=== PATIENT | female | born 1930 | race Caucasian/White ===

== ENCOUNTER 2016-08-15 16:55 | Inpatient (IN) | payer MEDICARE ==
[2016-08-15 18:21] LABS: SPECIFIC GRAVITY 1.015 (1.001-1.030); URINE BILIRUBIN NEGATIVE (NEGATIVE); URINE BLOOD TRACE (NEGATIVE); URINE GLUCOSE (UA) NEGATIVE (NEGATIVE); URINE LEUKOCYTE ESTERASE NEGATIVE (NEGATIVE); URINE NITRITE POSITIVE (NEGATIVE); URINE PROTEIN NEGATIVE (NEGATIVE); URINE UROBILINOGEN NORMAL (0-1 mg/dl)
[2016-08-15 18:24] LABS: URINE APPEARANCE HAZY; URINE COLOR LIGHT YELLOW
[2016-08-15 18:34] LABS: URINE BACTERIA 4+; URINE EPITHELIAL CELLS 0 /hpf; URINE RBC 0 /hpf
[2016-08-15] MEDS ORDERED: SODIUM CHLORIDE 0.9% 1,000 ML ONE (18:52)
[2016-08-15 18:58] LABS: ABSOLUTE NEUTROPHIL COUNT 11.1 K/mm3 (1.8-7.7); BASO # 0.1 K/mm3 (0.0-0.2); BASO % 0.5 % (0.2-1.0); EOS # 0.2 (0.0-0.5); EOS % 1.2 % (0.9-2.9); HEMATOCRIT 38.7 % (37.0-47.0); HEMOGLOBIN 12.4 gm/l (12.0-16.0); IMM NEUT% 0.3 % (0-1); LYMPH # 1.7 (1.0-4.8); LYMPH % 12.1 % (15-45); MEAN CELL VOLUME 90.8 fl (81.0-99.0); MEAN CORPUSCULAR HEMOGLOBIN 29.1 pg (27.0-31.0); MEAN PLATELET VOLUME 9.6 fl (7.4-10.4); MONO # 0.8 (0.0-0.8); NEUT % 79.9 % (43-75); PLATELET COUNT 422 K/mm3 (130-400); RED CELL DISTRIBUTION WIDTH 16.5 % (11.5-14.5)
[2016-08-15 19:20] LABS: ALB/GLOB RATIO 0.8 (>1.0); ALBUMIN 3.4 gm/dL (3.5-5.7); CALCIUM 8.8 mg/dL (8.6-10.3)
[2016-08-15 19:36] LABS: INR 2.29; PROTHROMBIN TIME 25.1 SECONDS (9.3-11.4)
[2016-08-15] MEDS ORDERED: CEFTRIAXONE 1 GRAM DUPLEX 50 ML IV ONE (19:43)
[2016-08-15] MEDS ORDERED: MENTHOL/CETYLPYRD 1 EACH LOZENGE PO PRN (23:16)
[2016-08-15] MEDS ORDERED: MAGNESIUM HYDROXIDE 30 ML UDCUP PO PRN (23:16)
[2016-08-15] MEDS ORDERED: ACETAMINOPHEN 325 MG TABLET PO PRN (23:16)
[2016-08-15] MEDS ORDERED: SODIUM CHLORIDE 0.9% 100 ML IV PRN (23:16)
[2016-08-15] MEDS ORDERED: BLISTEX LIPSTICK 1 EACH TP PRN (23:16)
[2016-08-15] MEDS ORDERED: ALBUTEROL NEB 2.5 MG/3 ML VIAL.NEB NEB PRN (23:19)
[2016-08-15] MEDS ORDERED: INSULIN ASPART (DOSE) 100 UNITS/1 ML SUB-Q PRN (23:23)
[2016-08-16] MEDS: GUAIFENESIN 600 MG TABLET.DR PO SCH ×4 (00:07→21:32)
[2016-08-16 05:33] VITALS: BMI 37.6
[2016-08-16 06:55] LABS: BASO % 0.5 % (0.2-1.0); EOS # 0.2 (0.0-0.5); EOS % 2.6 % (0.9-2.9); HEMATOCRIT 36.5 % (37.0-47.0); HEMOGLOBIN 11.8 gm/l (12.0-16.0); IMM NEUT% 0.5 % (0-1); LYMPH # 1.6 (1.0-4.8); LYMPH % 18.5 % (15-45); MEAN CELL VOLUME 89.2 fl (81.0-99.0); MEAN CORPUSCULAR HEMOGLOBIN 28.9 pg (27.0-31.0); MEAN CORPUSCULAR HGB CONC 32.3 g/dl (33.0-37.0); MEAN PLATELET VOLUME 9.9 fl (7.4-10.4); MONO # 0.6 (0.0-0.8); MONO % 7.1 % (4-12); NEUT % 70.8 % (43-75); PLATELET COUNT 385 K/mm3 (130-400); RED CELL DISTRIBUTION WIDTH 16.2 % (11.5-14.5)
[2016-08-16 07:01] LABS: INR 1.75; PROTHROMBIN TIME 18.9 SECONDS (9.3-11.4)
[2016-08-16 07:12] LABS: CALCIUM 8.1 mg/dL (8.6-10.3)
--- NOTE | 2016-08-16 07:30 | RAD ---
KNEE- LEFT 4 OR MORE VIEWS HISTORY: Knee pain. COMPARISONS: None. FINDINGS: 4 views of the left knee were performed demonstrating grossly intact osseous structures. There are prominent osteoarthritic changes seen with medial cartilage joint space loss and associated osteophyte formation. No lytic or blastic lesions are seen. No evidence of a significant knee joint effusion is observed. Atherosclerotic vascular calcification is noted posteriorly. IMPRESSION: 1. Prominent osteoarthritic changes with patellofemoral and medial compartment joint space loss. 2. No definitive fracture or significant joint effusion identified.
--- NOTE | 2016-08-16 07:34 | CT ---
LOWER EXT W/O CON LT History: Left knee pain. Comparison: Plain film examination of the same day. Procedure: 1 mm axial images were obtained through the left knee without the use of oral or intravenous contrast. Stacked reconstructed 3 mm images were then photographed in the axial, coronal and sagittal planes.. Findings: Images demonstrate no definitive fracture. There are prominent osteoarthritic changes seen with extensive tricompartmental osteophyte formation and patellofemoral and medial compartment joint space loss. There is a minimal joint effusion identified. A 12 mm irregular ossific density within the anterior aspect of the knee joint space likely reflects a loose body. Impression: 1. No acute fracture visualized. 2. Prominent tricompartmental osteoarthritic changes with patellofemoral and medial compartment joint space loss with associated osteophyte formation. 3. A probable 12 mm intra-articular loose body within the anterior aspect of the knee joint space. 4. A minimal joint effusion. The findings were called to the emergency room at 2021 hours, 08/15/2016, by [facility].
[2016-08-16] MEDS: DOCUSATE SODIUM 100 MG CAPSULE PO SCH ×3 (07:39→21:31)
[2016-08-16] MEDS: DILTIAZEM HCL CD 180 MG CAPSULE PO SCH ×2 (07:39→08:55)
[2016-08-16] MEDS: FLUTICASONE PROPIONATE 50 MCG/SPRAY 120 SPRAYS/16 G INH NS SCH ×2 (07:40→08:56)
[2016-08-16] MEDS: TOLTERODINE TARTRATE 2 MG TABLET PO SCH ×3 (07:40→21:30)
[2016-08-16] MEDS: METFORMIN HCL 1,000 MG TABLET PO SCH ×3 (07:40→21:32)
[2016-08-16] MEDS: FUROSEMIDE 40 MG TABLET PO SCH ×2 (07:41→08:57)
[2016-08-16] MEDS: ATORVASTATIN CALCIUM 40 MG TABLET PO SCH ×2 (07:41→08:57)
[2016-08-16] MEDS: VITAMIN D3 1,000 UNITS CAP.LIQ PO SCH ×2 (07:43→08:58)
[2016-08-16] MEDS: Potassium Chloride ORAL SOLN 20 MEQ/15 ML UDCUP PO SCH ×5 (08:57→21:30)
[2016-08-16] MEDS ORDERED: DILTIAZEM HCL CD 180 MG CAPSULE PO SCH (09:00)
--- NOTE | 2016-08-16 11:27 | HP ---
BALJIT PÉREZ [id number] DATE OF : 1930 DATE OF ADMISSION: 08/15/2016 IDENTIFICATION: Ms. Pérez is an 86-year-old now followed by Dr. Davis. CHIEF COMPLAINT: Multiple falls. HISTORY OF PRESENT ILLNESS: Ms. Pérez reports that she has fallen several times at home. She has weakness, and has had acute on chronic injury of her left knee causing a great deal of pain. She is also reporting a cough, and urinary frequency. Paramedics have been summoned to the house multiple times a day to help her up after falls. Ultimately, they brought her to [facility] Emergency Room where she was found to have the urinary tract infection and was too weak to be discharged. She was treated to ceftriaxone and referred to the Hospitalist service. REVIEW OF SYSTEMS: HEENT: She denies headache, or lightheadedness. No specific problems with eyes, ears, nose, and throat. Respiratory: She does have cough and dyspnea, nonproductive. Cardiac: No chest pain, or palpitations. Gastrointestinal: No nausea, vomiting or dyspepsia. She does have intermittent constipation. No hematochezia, or melena. Genitourinary: Frequency, no dysuria. Musculoskeletal: Generalized weakness. Constitutional: She has felt chills. PAST MEDICAL HISTORY: 1. Benign essential hypertension. 2. Hyperlipidemia. 3. Hearing loss. 4. Osteoarthritis. 5. Vitamin D deficiency. 6. Eczema. 7. Chronic lower extremity edema. 8. Diabetes mellitus type 2. 9. Urgency incontinence. 10. Chronic atrial fibrillation, anticoagulated on Warfarin. 11. 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 PAST SURGICAL HISTORY: 1. Laparoscopic cholecystectomy in 1990. 2. She describes recent procedure which sounds like esophagogastroduodenoscopy, maybe with endoscopic retrograde cholangiopancreatography. 3. Right cataract surgery. ALLERGIES: NONE KNOWN. MEDICATIONS: Taken from clinic records. 1. Vitamin D3 at 2000 international units daily. 2. Glimepiride 4 mg by mouth daily. 3. Metformin 1000 mg by mouth twice a day. 4. Furosemide 40 mg by mouth daily. 5. Fluticasone nasal spray daily. 6. Detrol 2 mg by mouth twice a day. 7. Atorvastatin 40 mg by mouth daily. 8. Diltiazem ER 180 mg daily. 9. Warfarin 5 mg by mouth daily. Note from the [facility] on 08/11/2016, she was taking Warfarin 5 mg daily and her INR was 2.8. HABITS: No current, or past tobacco, alcohol or drugs. SOCIAL HISTORY: She lives with her son and [id number]. She has a POLST form which does not have section A marked, but says comfort measures only in section B. She does want antibiotic treatment, but does not want cardiopulmonary resuscitation. A new POLST is completed with DNAR but Limited Additional Interventions. FAMILY HISTORY: Father of coronary artery disease at age 68. She had a brother with cancer of unknown type. PHYSICAL EXAMINATION: GENERAL: This is an obese very elderly woman with frequent moist cough. VITAL SIGNS: Temperature is 97.8 degrees Fahrenheit. Pulse is 78. Blood pressure is 137/51. Respiratory rate is 18. Oxygen saturation is 97% on room air. HEENT: Pupils are equal, round, and reactive. Extraocular muscles intact. Right status post cataract surgery. Oropharynx is moist. Dentition in moderate to poor condition. NECK: No adenopathy. CHEST: Lungs are clear. She does have some upper airway congestion that clears with coughing. HEART: Regular with 2/6 systolic murmur. ABDOMEN: Obese, soft and nontender. No suprapubic tenderness. No costovertebral angle tenderness. Normal bowel tones. No organomegaly. EXTREMITIES: Decreased with palpable pulses. Trace edema. No cyanosis, or clubbing. NEUROLOGIC: Very subtle decreased strength in the left arm and leg, otherwise nonfocal. LABORATORY DATA: White blood cell count is 13.9 with 80% neutrophils, hemoglobin and hematocrit 12.4 and 38.7, and platelets 422. INR is in the therapeutic range at 2.29. Sodium is 139, potassium 3.5, chloride 98, C02 of 31, BUN 19, creatinine 0.8, and glucose 163. Alkaline phosphatase is 143. Albumin is low at 3.4. Urinalysis: Specific gravity of 1.015, positive nitrate, negative leukocyte esterase, microscopic shows 3 to 5 white blood cell count, and 4+ bacteria. Culture has been set up. ASSESSMENT: Ms. Pérez is an 86-year-old who presents with urinary tract infection, and generalized weakness. She has had falls at home with exacerbation of her chronic osteoarthritis pain of the left knee. She has mild hypokalemia, underlying diabetes, cerebrovascular disease, chronic atrial fibrillation, and hypertension. PLAN: 1. Admit to med surge. 2. Continue treatment for urinary tract infection with ceftriaxone as started in the emergency department. 3. Continue outpatient medications. 4. Mucinex as needed for coughing and congestion. 5. She is fully anticoagulated on Warfarin and does not require additional venous thromboembolism prophylaxis. 6. DO NOT RESUSCITATE status. 7. Physical and occupational therapy evaluation and treatment. 8. She may need snf rehabilitation. KIMBERLY/talita
--- NOTE | 2016-08-16 12:15 | PDOC43 ---
- Subjective Chief Complaint: Multiple falls at home and weakness Feeling a little stronger today but still weak and fatigued. Denies dyspnea. - Objective Vital Signs Temperature 97.8 F 08/16/16 07:50 Pulse Rate 65 08/16/16 07:50 Respiratory Rate 18 08/16/16 11:00 Blood Pressure 119/68 08/16/16 07:50 O2 Saturation by Pulse Oximetry 95 08/16/16 07:50 Oxygen Delivery Method Room Air Oxygen Flow Rate 0 Intake and Output 08/15/16 08/16/16 08/17/16 06:59 06:59 06:59 Output Total 200 Balance -200 General: Alert, Oriented x3, Cooperative, No Acute Distress HEENT: Mucous membr. moist/pink Cardiovascular: Regular Rate and Rhythm, Murmur (09/21) Abdomen: Soft, Normal Bowel Sounds, No Tenderness, No Masses Extremities: Edema (trace), Pulses Diminished but Palpable Skin: Normal Color Neurological: Normal Speech Psych/Mental Status: Depressed Laboratory 08/16/16 05:20 08/16/16 05:30 08/16/16 08/16/16 08/16/16 11:36 05:30 05:20 RBC 4.09 L MCHC 32.3 L RDW 16.2 H PT 18.9 H Estimated GFR 94 H POC Capillary Glucose 115 H Calcium 8.1 L Current Medications: Current meds reviewed in EMR. - Problems: Assessment/Plan (1) UTI (lower urinary tract infection) Status: Acute Assessment/Plan: Bacterial infection present on admit, continue Ceftriaxone while awaiting culture results. (2) Hypokalemia Status: Acute Assessment/Plan: Increase replacement. (3) Weakness Status: Acute Assessment/Plan: OT/PT eval done, does need mod assist for pivot transfer, not clear if this is her baseline or not, home with [facility] vs. SNF for rehab. (4) Atrial fibrillation Qualifiers: Atrial fibrillation type: chronic Qualifier Code: (I48.2) Chronic atrial fibrillation Status: Chronic Assessment/Plan: Rate controlled, INR sub-therapeutic today, continue warfarin 5 mg daily and adjust as indicated. (5) CVD (cerebrovascular disease) Status: Chronic Assessment/Plan: With residual non-dominant left hemiparesis. Stable. (6) Diabetes type 2, controlled Qualifiers: Diabetes mellitus complication status: without complication Diabetes mellitus joint terminal attack controller insulin use: with joint terminal attack controller use Qualifier Code: (E11.9) Type 2 diabetes mellitus without complications Status: Chronic Assessment/Plan: BG well controlled (7) Dyslipidemia Status: Chronic Assessment/Plan: on atorvastatin (8) HTN (hypertension), benign Status: Chronic Assessment/Plan: well controlled (9) Osteoarthritis Qualifiers: Osteoarthritis location: multiple joints Osteoarthritis type: primary Qualifier Code: (M15.0) Primary generalized (osteo)arthritis Status: Chronic Assessment/Plan: with exacerbation of left knee pain from falls, APAP prn. (10) Anemia Status: Acute Assessment/Plan: dilutional from IVF hydration. VTE Prophylaxis: Warfarin Disposition: Home with HHC vs. SNF rehab
[2016-08-16] MEDS: WARFARIN SODIUM 5 MG TABLET PO SCH (15:00)
[2016-08-16] MEDS ORDERED: CEFTRIAXONE 1 GRAM DUPLEX 50 ML IV ONE (16:37)
[2016-08-16] MEDS ORDERED: SODIUM CHLORIDE 0.9% 50 ML IV ONE (16:44)
[2016-08-16] MEDS ORDERED: PUMP TUBING ONE (16:44)
[2016-08-16] MEDS: CEFTRIAXONE 1 GRAM DUPLEX 1 G in Premix (D5W) 50 ml 1 EACH IV SCH (17:00)
[2016-08-16] MEDS ORDERED: GLIMEPIRIDE 2 MG TABLET PO SCH (20:00)
[2016-08-17] MEDS ORDERED: SODIUM CHLORIDE 0.9% FLUSH 10 ML ONE (03:09)
[2016-08-17] MEDS ORDERED: IV START KIT ONE (03:09)
[2016-08-17 06:37] LABS: INR 1.53; PROTHROMBIN TIME 16.5 SECONDS (9.3-11.4)
[2016-08-17 06:48] LABS: CALCIUM 8.3 mg/dL (8.6-10.3)
[2016-08-17] MEDS: ATORVASTATIN CALCIUM 40 MG TABLET PO SCH (09:06)
[2016-08-17] MEDS: VITAMIN D3 1,000 UNITS CAP.LIQ PO SCH (09:06)
[2016-08-17] MEDS: TOLTERODINE TARTRATE 2 MG TABLET PO SCH ×2 (09:06→22:20)
[2016-08-17] MEDS: GUAIFENESIN 600 MG TABLET.DR PO SCH ×2 (09:07→22:20)
[2016-08-17] MEDS: METFORMIN HCL 1,000 MG TABLET PO SCH ×2 (09:07→17:02)
[2016-08-17] MEDS: DOCUSATE SODIUM 100 MG CAPSULE PO SCH ×2 (09:07→22:21)
[2016-08-17] MEDS: FUROSEMIDE 40 MG TABLET PO SCH (09:07)
[2016-08-17] MEDS: DILTIAZEM HCL CD 180 MG CAPSULE PO SCH (09:07)
[2016-08-17] MEDS: FLUTICASONE PROPIONATE 50 MCG/SPRAY 120 SPRAYS/16 G INH NS SCH (09:08)
--- NOTE | 2016-08-17 11:41 | PDOC43 ---
- Subjective Chief Complaint: Multiple falls at home and weakness A bit stronger today but still feels very weak. Subjective: Reports Pain Tolerable, Reports Tolerating Diet Well, Denies Shortness of Breath, Denies Cough, Denies Chest Pain, Denies Nausea, Denies Vomiting, Denies Fever, Denies Chills - Objective Vital Signs Temperature 98.3 F 08/17/16 07:32 Pulse Rate 67 08/17/16 07:32 Respiratory Rate 15 08/17/16 08:45 Blood Pressure 116/56 08/17/16 07:32 O2 Saturation by Pulse Oximetry 95 08/17/16 07:32 Oxygen Delivery Method Room Air Oxygen Flow Rate 0 Intake and Output 08/16/16 08/17/16 08/18/16 06:59 06:59 06:59 Intake Total 1480 Output Total 551 Balance 929 General: Alert, Oriented x3, Other (Tired/weak appearing.), No Acute Distress Lungs: Clear to Auscultation Bilaterally Cardiovascular: Regular Rate and Rhythm Abdomen: Soft, Normal Bowel Sounds, No Tenderness, No Rebounding, No Distention Extremities: Edema (Trace), Pulses Diminished but Palpable Neurological: Normal Speech Psych/Mental Status: Depressed Laboratory 08/17/16 05:30 Current Medications: Current meds reviewed in EMR. - Problems: Assessment/Plan (1) UTI (lower urinary tract infection) Status: Acute Assessment/Plan: Present on admit, cultures growing Klebsiella sp. Continue Ceftriaxone. (2) Hypokalemia Status: Acute Assessment/Plan: POA. Replaced. Follow. (3) Weakness Status: Acute Assessment/Plan: Pt with marked weakness d/t acute UTI in context of multiple co-morbidities. Anticipate will need SNF. (4) Anemia Status: Acute Assessment/Plan: dilutional from IVF hydration. (5) CVD (cerebrovascular disease) Status: Chronic Assessment/Plan: With residual non-dominant left hemiparesis. Stable. (6) Diabetes type 2, controlled Qualifiers: Diabetes mellitus complication status: without complication Diabetes mellitus termite exterminator helper insulin use: with termite exterminator helper use Qualifier Code: (E11.9) Type 2 diabetes mellitus without complications Status: Chronic Assessment/Plan: BG well controlled (7) Osteoarthritis Qualifiers: Osteoarthritis location: multiple joints Osteoarthritis type: primary Qualifier Code: (M15.0) Primary generalized (osteo)arthritis Status: Chronic Assessment/Plan: Diffuse and fairly severe sx at baseline, now with exacerbation of left knee pain from falls, APAP prn. (8) Atrial fibrillation Qualifiers: Atrial fibrillation type: chronic Qualifier Code: (I48.2) Chronic atrial fibrillation Status: Chronic Assessment/Plan: Rate controlled, INR sub-therapeutic today, continue warfarin 5 mg daily and adjust as indicated. (9) Dyslipidemia Status: Chronic Assessment/Plan: on atorvastatin (10) HTN (hypertension), benign Status: Chronic Assessment/Plan: well controlled VTE Prophylaxis: Warfarin Disposition: Home with C vs. SNF rehab. Additional Comments: Pt clearly needs inpt care given acute UTI, frequent falls and profound weakness in context of multiple co-morbidities. Anticipate will need SNF for an indefinite period prior to returning home.
[2016-08-17] MEDS: WARFARIN SODIUM 5 MG TABLET PO SCH (15:45)
[2016-08-17] MEDS: CEFTRIAXONE 1 GRAM DUPLEX 1 G in Premix (D5W) 50 ml 1 EACH IV SCH (17:48)
[2016-08-17] MEDS ORDERED: GLIMEPIRIDE 2 MG TABLET PO SCH (18:00)
[2016-08-18 06:01] LABS: HEMATOCRIT 37.7 % (37.0-47.0); MEAN CELL VOLUME 91.1 fl (81.0-99.0); MEAN CORPUSCULAR HGB CONC 31.8 g/dl (33.0-37.0); RED CELL DISTRIBUTION WIDTH 16.4 % (11.5-14.5)
[2016-08-18 06:13] LABS: INR 1.53; PROTHROMBIN TIME 16.4 SECONDS (9.3-11.4)
[2016-08-18 06:32] LABS: CALCIUM 9.7 mg/dL (8.6-10.3)
[2016-08-18] MEDS: VITAMIN D3 1,000 UNITS CAP.LIQ PO SCH (09:20)
[2016-08-18] MEDS: DOCUSATE SODIUM 100 MG CAPSULE PO SCH (09:21)
[2016-08-18] MEDS: ATORVASTATIN CALCIUM 40 MG TABLET PO SCH (09:21)
[2016-08-18] MEDS: DILTIAZEM HCL CD 180 MG CAPSULE PO SCH (09:21)
[2016-08-18] MEDS: FUROSEMIDE 40 MG TABLET PO SCH (09:21)
[2016-08-18] MEDS: METFORMIN HCL 1,000 MG TABLET PO SCH (09:21)
[2016-08-18] MEDS: GUAIFENESIN 600 MG TABLET.DR PO SCH (09:21)
[2016-08-18] MEDS: TOLTERODINE TARTRATE 2 MG TABLET PO SCH (09:22)
--- NOTE | 2016-08-18 12:14 | DS ---
Ana Pérez ADMIT DATE: 08/15/2016 DISCHARGE DATE: 08/18/2016 ADMIT DIAGNOSES: 1. Urinary tract infection present on admission. 2. Profound weakness. 3. Late effect of his cerebrovascular accident with chronic left hemiparesis. 4. Chronic diabetes mellitus at baseline. 5. Diffuse arthritis with pain and debility as a result. 6. Hypertension, stable. DISCHARGE DIAGNOSES: 1. Urinary tract infection present on admission. 2. Profound weakness. 3. Late effect of his cerebrovascular accident with chronic left hemiparesis. 4. Chronic diabetes mellitus at baseline. 5. Diffuse arthritis with pain and debility as a result. 6. Hypertension, stable. ADMIT HISTORY AND PHYSICAL: Please see Dr. Chavis's note for details. Briefly, Ms. Pérez is a 86-year-old female. The initial story was that she had been at home and had been falling regularly with multiple EMT visits to help her up. It turns out she has actually been in a long-term facility up until recently when she just returned home in the last few days. She was brought to the emergency room due to frequent falls. She was found to have a urinary tract infection and was too weak to return home. She was subsequently admitted to the hospitalist service for supportive care and facilitate placement. HOSPITAL COURSE: She was admitted and started on Rocephin. Her urinalysis did eventually grow out Klebsiella susceptible to all antibiotics except for nitrofurantoin and ampicillin. Upon discharge she was transitioned over to Keflex. She did receive physical therapy and occupational therapy while here and was found to be profoundly weak and felt best to be returned to long-term facility for continued rehab. All of her medical problems appear to be at baseline. On day of discharge she was doing well. Physical exam remained unchanged and she was discharged to long-term facility. DISCHARGE MEDICATIONS: Keflex 500 mg by mouth three times daily x3 more days. All other medications as prior to admit as follows: 1. Amaryl 4 mg by mouth every evening. 2. Metformin 1000 mg by mouth twice daily. 3. Vitamin D3 2000 units by mouth daily. 4. Lipitor 40 mg by mouth daily. 5. Diltiazem ER 180 by mouth daily. 6. Fluticasone nasal spray daily. 7. Lasix 40 mg by mouth every morning. 8. Detrol 2 mg by mouth twice daily. 9. Coumadin 5 mg by mouth daily. DISCHARGE PLAN: Plan for INR recheck on 08/24/2016. JOB: [id number] CC: Dr. Addison Davis
[2016-08-18] MEDS: FLUTICASONE PROPIONATE 50 MCG/SPRAY 120 SPRAYS/16 G INH NS SCH (13:06)
[2016-08-18 13:54] VITALS: BP 151/71
== END 2016-08-18 13:52 | DRG 563 ==
LOC: ED 16:55 → MS 22:02
PROVIDERS: ADMIT Family Medicine; ATTEND Family Medicine
DX: S83.91XA Sprain of unspecified site of right knee, initial encounter (principal); N39.0 Urinary tract infection, site not specified; I69.954 Hemiplegia and hemiparesis following unspecified cerebrovascular disease affecting left non-dominant side; I10 Essential (primary) hypertension; E78.5 Hyperlipidemia, unspecified; H91.90 Unspecified hearing loss, unspecified ear; M19.90 Unspecified osteoarthritis, unspecified site; E55.9 Vitamin D deficiency, unspecified; R32 Unspecified urinary incontinence; Z66 Do not resuscitate; E11.9 Type 2 diabetes mellitus without complications; E87.6 Hypokalemia; I48.2 Chronic atrial fibrillation; D64.9 Anemia, unspecified; W19.XXXA Unspecified fall, initial encounter

== ENCOUNTER 2016-11-20 10:51 | Emergency (ER) | payer MEDICARE ==
[2016-11-20 11:38] LABS: URINE BILIRUBIN NEGATIVE (NEGATIVE); URINE BLOOD NEGATIVE (NEGATIVE); URINE GLUCOSE (UA) NEGATIVE (NEGATIVE); URINE LEUKOCYTE ESTERASE NEGATIVE (NEGATIVE); URINE NITRITE NEGATIVE (NEGATIVE); URINE PROTEIN NEGATIVE (NEGATIVE); URINE UROBILINOGEN NORMAL (0-1 mg/dl)
[2016-11-20 11:39] LABS: URINE APPEARANCE CLEAR; URINE COLOR YELLOW
[2016-11-20 12:11] LABS: ABSOLUTE NEUTROPHIL COUNT 6.8 K/mm3 (1.8-7.7); BASO % 0.2 % (0.2-1.0); EOS # 0.1 (0.0-0.5); EOS % 0.9 % (0.9-2.9); HEMATOCRIT 41.1 % (37.0-47.0); HEMOGLOBIN 13.5 gm/l (12.0-16.0); IMM NEUT% 0.2 % (0-1); LYMPH # 0.7 (1.0-4.8); LYMPH % 8.9 % (15-45); MEAN CELL VOLUME 90.9 fl (81.0-99.0); MEAN CORPUSCULAR HEMOGLOBIN 29.9 pg (27.0-31.0); MEAN CORPUSCULAR HGB CONC 32.8 g/dl (33.0-37.0); MEAN PLATELET VOLUME 9.6 fl (7.4-10.4); MONO # 0.5 (0.0-0.8); MONO % 6.5 % (4-12); NEUT % 83.3 % (43-75); PLATELET COUNT 306 K/mm3 (130-400); RED CELL DISTRIBUTION WIDTH 15.4 % (11.5-14.5)
[2016-11-20 12:25] LABS: INR 2.9; PROTHROMBIN TIME 32.2 SECONDS (9.3-11.4)
[2016-11-20 12:29] LABS: ALB/GLOB RATIO 1.1 (>1.0); ALBUMIN 3.4 gm/dL (3.5-5.7); CALCIUM 8.6 mg/dL (8.6-10.3); MAGNESIUM 1.2 mg/dL (1.9-2.7)
--- NOTE | 2016-11-20 12:53 | RAD ---
Exam: Two-view chest COMPARISON: 07/07/2016 INDICATION: Shortness of breath, cough and generalized weakness. FINDINGS: AP and lateral views of the chest were obtained with the patient sitting on stretcher. There is some motion artifact on the lateral view. Cardiac silhouette remains at the upper limits of normal. There is no focal airspace disease or pleural effusion. A few bridging osteophytes are noted within the lower thoracic spine. IMPRESSION: No acute pulmonary process.
[2016-11-20] MEDS ORDERED: MAGNESIUM SULFATE 1 G/100 ML 200 ML IV ONE (13:12)
[2016-11-20] MEDS ORDERED: POTASSIUM CHLORIDE 20 MEQ TAB.PRT.SR ONE (13:45)
[2016-11-20] MEDS ORDERED: LACTATED RINGERS 1,000 ML ONE (13:45)
[2016-11-20] MEDS ORDERED: Potassium Chloride ORAL SOLN 20 MEQ/15 ML UDCUP ONE (13:57)
== END 2016-11-20 16:19 | disposition home or self-care (01) ==
LOC: ED 10:51
DX: R53.1 Weakness (principal); E87.6 Hypokalemia; E83.42 Hypomagnesemia; E11.9 Type 2 diabetes mellitus without complications; Z79.84 Long term (current) use of oral hypoglycemic drugs; Z86.73 Personal history of transient ischemic attack (TIA), and cerebral infarction without residual deficits; Z79.01 Long term (current) use of anticoagulants